=== PATIENT | male | born 1990 | race Caucasian/White ===

== ENCOUNTER 2022-10-03 20:54 | Emergency (ER) | payer SELFPAY ==
[~2022-10-03] VITALS: Ht 172.7 cm; Wt 65.8 kg
[2022-10-03] MEDS ORDERED: CLINDAMYCIN HCL 150 MG CAPSULE PO ONE (23:30)
[2022-10-03] MEDS ORDERED: LIDOCAINE /MPF 1% VIAL 5 ML VIAL ONE (23:30)
[2022-10-03] MEDS ORDERED: CLINDAMYCIN HCL 150 MG CAPSULE ONE (23:37)
--- NOTE | 2022-10-03 23:55 | NUR ---
EMT AT PT'S BEDSIDE FOR WOUND CARE
[2022-10-04] MEDS ORDERED: CLIN300C12 PO (00:17)
--- NOTE | 2022-10-04 00:27 | NUR ---
Patient discharged to home in stable condition. Written and verbal after care instructions given. Patient verbalizes understanding of instruction. Wound care done
--- NOTE | 2022-10-04 00:27 | NUR ---
Patient discharged to home in stable condition. Written and verbal after care instructions given. Patient verbalizes understanding of instruction.
[2022-10-04 01:10] VITALS: BP 117/72
== END 2022-10-04 01:11 | disposition home or self-care (01) ==
LOC: ER 20:58
DX: S61.012A Laceration without foreign body of left thumb without damage to nail, initial encounter (principal); Z60.2 Problems related to living alone; W26.0XXA Contact with knife, initial encounter; Y93.89 Activity, other specified; Y92.89 Other specified places as the place of occurrence of the external cause; Y99.8 Other external cause status
CPT/HCPCS: 99283; 12002; J3490